=== PATIENT | female | born 1950 | race Caucasian/White ===

== ENCOUNTER → 2023-12-26 08:13 | Outpatient (REF) | payer MEDICARE, OTHER, SELFPAY ==
[2023-12-26 08:44] LABS: Urine Albumin Negative (Neg - Trace); Urine Bilirubin Negative (Negative); Urine Character Clear (Clear); Urine Color Yellow; Urine Glucose Negative (Negative); Urine Ketone 1+ (Negative); Urine Leukocyte Negative (Negative); Urine Nitrite Negative (Negative); Urine Occult Blood Negative (Negative); Urine Specific Gravity 1.015 (<1.030); Urine Urobilinogen Negative (Neg - 1+); Urine pH 6.5 (5.0-9.0)
[2023-12-26 09:28] LABS: % Basophils 0.4 % (0-2); % Eosinophils 0.8 % (0-6); % Immature Granulocytes 0.2 % (0-0.5); % Lymphocytes 21.2 % (20.5-51.1); % Monocytes 8.1 % (1.7-9.3); % Neutrophils 69.3 % (42.2-75.2); Absolute Lymphocytes 1.1 10^3/uL (1.2-3.4); Absolute Monocytes 0.4 10^3/uL (0.1-0.6); Absolute Neutrophils 3.6 10^3/uL (1.4-6.5); Hematocrit 42.3 % (37.0-47.0); Hemoglobin 14.5 g/dL (12.0-16.0); Mean Corp Hgb Conc. 34.3 g/dL (33.0-37.0); Mean Corpuscular Hgb 31.3 pg (27.0-31.0); Mean Corpuscular Volume 91.2 fL (81.0-99.0); Mean Platelet Volume 9.6 fL (7.4-10.4); Nucleated Red Blood Cells % 0 %; Platelet Count 256 10^3/uL (130-400); Red Blood Cell Count 4.64 10^6/uL (4.20-5.40); Red Cell Dist. Width 11.6 % (11.5-14.5); White Blood Cell Count 5.2 10^3/uL (4.8-10.8)
[2023-12-26 09:48] LABS: TSH Reflex To Free T4 0.99 uIU/ml (0.47-4.68)
[2023-12-26 13:08] LABS: ALT (SGPT) 31 U/L (0-35); AST (SGOT) 36 U/L (14-36); Alkaline Phosphatase 70 U/L (38-126); Blood Urea Nitrogen 13 mg/dl (7-17); Calcium 9.8 mg/dl (8.4-10.2); Carbon Dioxide 27 mmol/L (22-30); Chloride 98 mmol/L (98-107); Glucose 80 mg/dl (70-99); HDL Cholesterol 77 mg/dl; LDL Cholesterol, Calculated 120 mg/dl; Potassium 4.4 mmol/L (3.5-5.1); Sodium 133 mmol/L (135-145); Total Bilirubin 1.6 mg/dl (0.2-1.3); Total Cholesterol 221 mg/dl (50-199); Total Protein 7.7 g/dl (6.3-8.2); Triglyceride 124 mg/dl (10-149); Very Low Density Lipoprotein 24 mg/dl (0-30); eGFR > 60.00
== END ==
LOC: REG 08:13
PROVIDERS: ATTENDING PHYSICIAN Internal Medicine
DX: Z86.73 Personal history of transient ischemic attack (TIA), and cerebral infarction without residual deficits (principal); R53.83 Other fatigue; R63.4 Abnormal weight loss
CPT/HCPCS: 36415; 80053; 80061; 81003; 84443; 85025

== ENCOUNTER → 2025-01-06 07:45 | Outpatient (REF) | payer MEDICARE, OTHER, SELFPAY ==
[2025-01-06 08:47] LABS: % Basophils 0.8 % (0-2); % Eosinophils 1.3 % (0-6); % Immature Granulocytes 0.2 % (0-0.5); % Lymphocytes 23.6 % (20.5-51.1); % Monocytes 8.1 % (1.7-9.3); Absolute Eosinophils 0.1 10^3/uL (0-0.7); Absolute Lymphocytes 1.1 10^3/uL (1.2-3.4); Absolute Monocytes 0.4 10^3/uL (0.1-0.6); Absolute Neutrophils 3.1 10^3/uL (1.4-6.5); Hematocrit 39.7 % (37.0-47.0); Hemoglobin 13.7 g/dL (12.0-16.0); Mean Corp Hgb Conc. 34.5 g/dL (33.0-37.0); Mean Corpuscular Hgb 31.2 pg (27.0-31.0); Mean Corpuscular Volume 90.4 fL (81.0-99.0); Mean Platelet Volume 9.8 fL (7.4-10.4); Nucleated Red Blood Cells % 0 %; Platelet Count 233 10^3/uL (130-400); Red Blood Cell Count 4.39 10^6/uL (4.20-5.40); Red Cell Dist. Width 11.9 % (11.5-14.5); White Blood Cell Count 4.7 10^3/uL (4.8-10.8)
[2025-01-06 09:04] LABS: ALT (SGPT) 32 U/L (0-35); AST (SGOT) 32 U/L (14-36); Albumin 4.8 g/dl (3.5-5.0); Alkaline Phosphatase 72 U/L (38-126); Blood Urea Nitrogen 18 mg/dl (7-17); Calcium 9.9 mg/dl (8.4-10.2); Carbon Dioxide 29 mmol/L (22-30); Chloride 102 mmol/L (98-107); Glucose 93 mg/dl (70-99); HDL Cholesterol 66 mg/dl; LDL Cholesterol, Calculated 96 mg/dl; Sodium 140 mmol/L (135-145); Total Bilirubin 1.4 mg/dl (0.2-1.3); Total Cholesterol 186 mg/dl (50-199); Total Protein 7.2 g/dl (6.3-8.2); Triglyceride 120 mg/dl (10-149); Very Low Density Lipoprotein 24 mg/dl (0-30); eGFR > 60.00
[2025-01-06 09:32] LABS: TSH Reflex To Free T4 0.99 uIU/ml (0.47-4.68)
== END ==
LOC: REG 07:45
PROVIDERS: ATTENDING PHYSICIAN Internal Medicine
DX: R21 Rash and other nonspecific skin eruption (principal); I63.9 Cerebral infarction, unspecified; Z85.3 Personal history of malignant neoplasm of breast; R63.4 Abnormal weight loss
CPT/HCPCS: 36415; 80053; 80061; 84443; 85025

== ENCOUNTER → 2025-02-26 14:21 | Outpatient (REF) | payer MEDICARE, OTHER, SELFPAY | LOC: WDC 14:21 | PROVIDERS: ATTENDING PHYSICIAN Internal Medicine | DX: Z12.31 Encounter for screening mammogram for malignant neoplasm of breast (principal) | CPT/HCPCS: 77063; 77067 ==

== ENCOUNTER 2025-06-20 10:03 | Inpatient (IN) | payer MEDICARE, OTHER, SELFPAY ==
[2025-06-20] VITALS (15 sets, daily range): BP systolic 127–162; BP diastolic 61–95; PULSE 65–88; BMI 17.3; BMI 18.1
--- NOTE | 2025-06-20 06:42 | ED.GENMED ---
History of Present Illness
General
Chief Complaint: Fainting/Passed Out
Time Seen by Provider: 06/20/25 06:42
History of Present Illness
History of Present Illness:
FOCUSED PAST MEDICAL HISTORY
- Breast cancer
REVIEW OF OLD RECORDS
- The patient had surgery for breast cancer 2007 and had screening colonoscopy in 2017
Note:
CHIEF COMPLAINT(S)
Flu-like symptoms, weakness, and syncope.
HISTORY OF PRESENT ILLNESS
The patient is a 74-year-old female who reports the onset of symptoms starting on Monday, two days ago. She describes these symptoms as resembling the flu, beginning with fatigue followed by a sudden onset of generalized achiness and weakness.
The patient denies any episodes of fever or respiratory difficulties. She also reports experiencing syncope on three occasions last night, including one incident in the hallway and another on her way to the restroom. The patient does not recall the
episodes of fainting until she found herself on the floor. She denies having a pacemaker. Additional symptoms include the presence of diarrhea, which she describes as 'oozing.' She denies vomiting but has experienced nausea without any actual
emesis. Currently, her primary concern is fear of standing due to a potential recurrence of syncope. She denies any abdominal tenderness upon palpation and does not report respiratory symptoms. The patient did not receive a flu nor COVID vaccination
this year.
PAST MEDICAL AND SURGICAL HISTORY
The patient has a history of breast cancer. She does not currently take any medications.
PHYSICAL EXAM
General: Appears weak and debilitated.
Skin: No acute findings.
Head: Normocephalic.
Neck: Supple.
Eye, Ears, Nose, Mouth, and Throat: Clear.
Cardiovascular: Occasional irregularity noted in cardiac sounds upon auscultation.
Respiratory: Clear lung sounds.
Gastrointestinal: Non-tender abdomen.
Neurological: Alert, oriented, reports feeling weak.
Psychiatric: Afraid of standing due to fear of syncope.
PLAN
- Administer intravenous fluids.
- Conduct blood tests and electrocardiogram (EKG).
- Monitor patients symptoms and provide supportive care.
DIFFERENTIAL DIAGNOSIS
The Differential Diagnosis includes, in no particular order and is not limited to:
1. Viral infection (e.g., influenza)
2. Syncope due to dehydration
3. Cardiac arrhythmia
4. Electrolyte imbalance
5. Orthostatic hypotension
6. Acute gastrointestinal infection
7. Vasovagal syncope
8. Sepsis or systemic infection
9. Neurological disorder
10. Medication-induced syncope (though the patient reports no current use)
11. CARTER
RADIOLOGY
- Chest x-ray obtained and I see no acute abnormality; CT head personally viewed and shows no acute abnormality other than scalp hematoma
EKG
- Sinus 78, PACs, RSR prime pattern, no acute ST abnormality, PACs are new in comparison to 2008
LABS
- White count and hemoglobin are both normal, sodium 129, COVID-positive, flu negative
UPDATE
-SUMMARY OF ENCOUNTER
The patient, a 74-year-old female, was seen in the emergency department due to flu-like symptoms, weakness, and episodes of syncope. She reported fatigue, generalized achiness, and weakness starting two days ago, with three instances of syncope
occurring last night. She was found to be COVID-19 positive, although she has no respiratory symptoms. Initial assessment noted mild hyponatremia with a sodium level of 129. Given her symptoms, IV fluids were administered to address potential
dehydration, contributing to syncope and weakness. An x-ray was also conducted, but specifics are not available in the transcript.
PLAN
- Continue supportive care with intravenous fluids.
- Monitor sodium levels and overall hydration status.
- Educate the patient regarding syncope precautions and management.
- Recommend COVID-19 isolation protocols given positive test results.
INDEPENDENT REVIEW OF LABS AND INTERPRETATION OF TESTS
My independent review of basic metabolic panel indicates mild hyponatremia with a sodium level of 129.
MEDICATION RECONCILIATION
IV fluids were administered to address dehydration.
MEDICAL DECISION MAKING
-Complexity of Data Reviewed: Chronic conditions affecting care [Breast cancer] Viral infection (e.g., influenza), syncope due to dehydration, cardiac arrhythmia, electrolyte imbalance, orthostatic hypotension, acute gastrointestinal infection,
vasovagal syncope, sepsis or systemic infection, neurological disorder.
-Data:
Category 1:
IV fluid administration due to recent diarrhea and potential dehydration.
Mild hyponatremia were addressed through laboratory findings.
Category 2:
None mentioned.
Category 3:
None mentioned.
-Risk:
Consideration of Admission/Observation: Escalation of care including admission/observation was considered given the complexity and risk of the patients presenting complaint and her underlying comorbidities. However, ultimately I feel the patient is
safe for outpatient management with close follow-up. Reasoning: Work-up reassuring, does not reveal any acute life/organ-threatening processes, patients symptoms well controlled upon reevaluation, reexamination is reassuring, vitals are stable,
patient agreeable with discharge, reliable for follow-up.
DIAGNOSIS
- COVID-19 (U07.1)
- Syncope (R55)
- Mild hyponatremia
I reassessed the patient at 8:45 AM, a small abrasion is noted to the posterior scalp. There is no significant hematoma associated with this. Given her advanced age with general unwell feeling will obtain CT imaging of the head as well.
at bedside feels that she is too unwell to return home especially with passing out multiple times. The syncopal events seem to worsen when she gets up. We had her get up and walk around and she did seem somewhat unsteady. Her heart rate and blood
pressure did not significantly changed. She was given a liter of fluid. Sodium slightly low
Past History
Past History
ED Past Medical History: Other (anemia, Breast CA)
ED Past Surgical History: Gynecological (breast ca sx)
Social History
Personal:
Living: with family
Employment: Employed
Phy Exam
Physical Exam
Physical Exam:
See HPI
Course
Orders/Labs/Results
Orders:
Orders
06/20/25 06:43
Electrocardiogram (*1) Urgent
Reason for Study: Chest Pain
EKG- Treatment ONCE
06/20/25 06:51
0.9% Sodium Chloride 1000 ml [Nss] 1,000 ml IV BOLUS
06/20/25 06:55
Basic Metabolic Panel Urgent
Complete Blood Count/With Diff Urgent
06/20/25 07:27
COVID-19 Antigen Urgent
Source: Nasal Swab
Influenza A+B Rapid Molecular Urgent
BIENVENIDO Source: Nasal Swab
Specimen Description:
06/20/25 07:58
CR Chest - 2 Views Urgent
Comment:
Reason For Exam: (+) COVID; recurrent syncope
06/20/25 08:45
CT Head W/o Iv Contrast Urgent
Comment:
Reason For Exam: head injury; recurrent syncope
06/20/25 09:54
Admit/Transfer Patient As Directed
Co-Sign Provider:
Level of Care: Inpatient admission
Assign to:: Telemetry
Physician / Group: Castillo Noel
Diagnosis: COVID 19 viral infection, recurrent syncope, hyponatremia
Reason for Telemetry: Syncope
Date to Stop Telemetry: 06/22/25
Time to Stop Telemetry: 11:00
Reason for Hospitalization: COVID 19 viral infection, recurrent syncope, hyponatremia
Expected length of stay greater than two midnights?: Yes
ELOS- Estimated Length of Stay in days: 2
I certify the patient meets the requirements for IP care: Yes
PRN Pain Medication Management As Directed
May give lesser potent ordered pain med per pt: Yes
preference::
Protocol:: Medication orders for pain may be administered in a
manner that supports deferring to patient preference
when the pt is:
- Requesting an ordered lesser potent pain medication.
Least to most potent pain medications are defined
as: acetaminophen < NSAID < tramadol < opioids
(morphine, oxycodone, hydromorphone).
- Requesting a lesser dose of the same medication IF
ORDERED.
- Requesting a less intrusive route of administration
if both routes are prescribed by the provider (PO <
IV).
06/20/25 09:55
Code Status As Directed
Resuscitation Status: Full Code
06/22/25 11:00
DC Protocol for Telemetry ONCE
Abnormal Lab Results
06/20/25 06/20/25
06:55 07:27
RDW 11.4 L %
(11.5-14.5)
Absolute Lymphs (auto) 0.5 L 10^3/uL
(1.2-3.4)
Neutrophils % 81.4 H %
(42.2-75.2)
Lymphocytes % 8.3 L %
(20.5-51.1)
Monocytes % 9.9 H %
(1.7-9.3)
Sodium 129 L mmol/L
(135-145)
Chloride 96 L mmol/L
(98-107)
SARS-CoV-2 Antigen Positive A
(Negative)
06/20/25 06:55
06/20/25 06:55
Vital Signs
Initial and Last Documented VS:
Initial Vital Signs
Temp Pulse Resp Pulse Ox
37.2 C 80 16 97
06/20/25 06:50 06/20/25 06:50 06/20/25 06:50 06/20/25 06:50
Last Documented Vital Signs
Temp Pulse Resp BP Pulse Ox
37.2 C 73 16 127/65 96
06/20/25 06:50 06/20/25 10:00 06/20/25 06:51 06/20/25 06:54 06/20/25 06:51
*Pulse Oximetry
Patient hypoxic: no
*Critical Care Note
Total Time (30-74mins, 75-104mins- exclusive of procedures): Not Applicable
ED Attending Note
-
Portions of this chart may have been created with voice recognition software.� Occasional wrong word or��sound alike� substitutions may have occurred due to the inherent limitations of voice recognition software.
Discharge Plan
Departure
Patient Disposition: Admit
Date of Disposition: 06/20/25
Time of Disposition: 08:55
Presentation/result/management discussed w/ accepting MD/DO: Hospitalist
Discharge Problem:
Syncope and collapse
Interventions
Interventions:
*Risk Screen - Suicide Last Done: 06/20/25 06:47
*General Assessment Last Done: 06/20/25 06:47
*Neglect/Abuse Screening Last Done: 06/20/25 06:47
*ED- Fall Risk Assessment Last Done: 06/20/25 06:47
*ED COVID-19 Vaccine History Last Done: 06/20/25 06:47
*ED Influenza Vaccine History Last Done: 06/20/25 06:47
[2025-06-20 07:28] LABS: Hematocrit 40.8 % (37.0-47.0); Hemoglobin 14.4 g/dL (12.0-16.0); Mean Corp Hgb Conc. 35.3 g/dL (33.0-37.0); Mean Corpuscular Volume 87.2 fL (81.0-99.0); Nucleated Red Blood Cells % 0 %; Platelet Count 148 10^3/uL (130-400); Red Cell Dist. Width 11.4 % (11.5-14.5)
[2025-06-20] MEDS: NSS 1000 IV ×2 (07:28→16:48)
[2025-06-20 07:31] LABS: Blood Urea Nitrogen 15 mg/dl (7-17); Calcium 8.7 mg/dl (8.4-10.2); Carbon Dioxide 25 mmol/L (22-30); Chloride 96 mmol/L (98-107); Estimated Creatinine Clearance 45 ml/min; Glucose 94 mg/dl (70-99); Sodium 129 mmol/L (135-145); eGFR > 60.00
[2025-06-20 07:48] LABS: COVID-19 Antigen Positive (Negative)
--- NOTE | 2025-06-20 09:57 | HPS.HSE ---
Family Physician
-
Family Physician: Steven Howard
Chief Complaint
-
Syncope, generalized weakness
History of Present Illness
Patient is a 74-year-old female with no significant past medical history came to ER with new onset of generalized weakness and recurrent syncope starting from last Monday. Patient was in her usual state of health when started feeling excessively
weak/fatigued from last Monday. Patient started to having associated loss of appetite episodes of diarrhea. No abdominal pain nausea or vomiting reported. Patient ended up having 3 syncope episode as well when patient tried to get up from
sitting position. No prodromal symptoms with syncope lasting for few seconds only. Patient would report some flashing light before passing out. Ended up having occipital head injury with minimal bleeding no other larger laceration cuts noted.
Patient denies of having any history of cardiac issues/cardiac arrhythmia. Patient was brought into ER for further evaluation and was found to have COVID-19 infection. Of note patient is denying any ongoing shortness of breath/cough for last few
days. Patient was largely afebrile for last few days although noted to feeling bit feverish at home yesterday in ER today.
Medical History
Past Medical History
Past Medical History: Reports None
Past Surgical History: Reports None
Social History
Tobacco: Non-smoker
Alcohol: None
Drug: None
Personal:
Living: With Family
Family History
Family History: Not pertinent
Allergies / Home Medications
Allergies reflects when Allergies were last updated in [employer].
Home Medications with original date entered in [employer]
Allergy/Medication List:
Allergies
Allergy/AdvReac Type Severity Reaction Status Date / Time
erythromycin base Allergy NAUSEA, Verified 07/19/17 15:06
VOMITING,
SWEATS
house dust Allergy Itching Verified 07/19/17 15:06
latex (Latex) Allergy Unknown Verified 07/19/17 15:06
mold extracts (Mold Extracts) Allergy Unknown Verified 07/19/17 15:06
cats Allergy Unknown Uncoded 07/19/17 15:06
Home Medications
aspirin 325 mg tablet 975 mg PO DAILYPRN PRN HEADACHE 06/20/25
calcium carbonate 500 mg PO DAILY 06/20/25
folic acid 400 mcg tablet 0.4 mg PO DAILY 06/20/25
vitamin B complex 1 tab PO DAILY 06/20/25
Review of Systems
-
A 12 point ROS was completed and negative except as noted: Yes
Physical Exam
Vital Signs
Vital Signs
Temp Pulse Resp BP Pulse Ox
98.9 F 78 16 127/65 96
06/20/25 06:50 06/20/25 06:51 06/20/25 06:51 06/20/25 06:54 06/20/25 06:51
Physical Exam
General: Well Developed, Well Nourished and No Apparent Distress
HEENT: NormoCephalic, Moist mucous membranes and Atraumatic
Respiratory: Clear
Cardiac: S1/S2 and Regular Rhythm; No Murmur or Rub
GI: Soft, Non Tender, Non Distended and Normal Bowel Sounds; No Organomegaly
Rectal: Deferred by Provider
Musculoskeletal: No Clubbing, No Cyanosis and No Edema
Skin: No Rash
Neuro: Nonfocal/grossly intact
Laboratory Results
-
06/20/25 06:55
06/20/25 06:55
Laboratory Results
Total Bilirubin Cancelled 06/20/25 06:55
AST Cancelled 06/20/25 06:55
ALT Cancelled 06/20/25 06:55
Alkaline Phosphatase Cancelled 06/20/25 06:55
Impression/Plan
-
1. COVID-19 viral infection
-No dyspnea/hypoxia
-Chest x-ray clear
-Hold on starting steroids/Paxlovid, will start if required
2. Recurrent syncope
-Clinically sounding orthostatic hypotension, vital checks ordered
-EKG reviewed and normal sinus rhythm, monitor on telemetry
-No previous cardiac history
-Not on any blood pressure medication
3. Generalized weakness
-From COVID infection, PT OT ordered
4. Hyponatremia
-Reported decreased oral intake with few episodes of diarrhea from COVID likely
-Considering hypovolemic hyponatremia
-Got 1 L normal saline in ER, maintain on NS
-Recheck sodium in the morning
5. Episodes of diarrhea
-Imodium as needed for symptomatic control
DVTPPX - lovenox
Full code
Total time spent : 78 mins
I personally saw and examined the patient.
I have reviewed all diagnostic interpretations and treatment plans as written.
Time includes patient management by me, time spent at the patients bedside, time to review lab and imaging results, discussing patient care, documentation in the medical record, and time spent with the family or caregiver and discussing care plan
with RN/Consultants.
--- NOTE | 2025-06-20 12:21 | CM ---
Chart reviewed and spoke with pt and Yandel at bedside. Lives in a 2 story home with 12 [address] with railings. Bathroom on the 1st floor. Previously Independent, driving.
no DME
PCP Steven Howard
RX plan yes
Pharmacy [facility] in [place]
no hx of VN nor SNF
CM will follow up with any dcp needs
--- NOTE | 2025-06-20 12:26 | CM ---
chart reviewed and spoke with patient and at ED bedside.
Lives in a 2 story home with 12 [address]; BR on the same level
Independent, ambulating w/o difficulty and driving
no DME
PCP Conrado Howard
RX plan yes [employer]
Pharmacy [facility] in [place]
no hx of VN nor SNF
CM will continue to follow up with dcp needs
[2025-06-20] MEDS: TYLENOL 650 MG PO (12:47)
[2025-06-20] MEDS: LOVENOX 40 MG SC (20:24)
--- NOTE | 2025-06-20 22:22 | PTCARENOTE ---
Patient arrived to unit via stretcher around 21:45. Patient AAOx3. Pleasant and cooperative with care. Patient denies pain or SOB at current time. Unsteady with transfer needing assist x 1 to walk to bed. Bed alarm applied and reasoning explained to
patient. Patient states understanding and agrees to use call macias for all assists. Vitals stable. Patient on room air. Oriented to unit. Call macias within reach.
[2025-06-21 03:37] VITALS: BP 152/75
[2025-06-21] MEDS: NSS 1000 IV (04:22)
[2025-06-21 07:36] VITALS: BP 129/80; BP 130/81; BP 138/83; PULSE 84; PULSE 93; PULSE 94
[2025-06-21 08:07] LABS: Hematocrit 43.2 % (37.0-47.0); Hemoglobin 14.7 g/dL (12.0-16.0); Mean Corp Hgb Conc. 34.0 g/dL (33.0-37.0); Mean Corpuscular Volume 91.9 fL (81.0-99.0); Nucleated Red Blood Cells % 0 %; Platelet Count 160 10^3/uL (130-400); Red Cell Dist. Width 11.8 % (11.5-14.5)
[2025-06-21 08:42] LABS: Blood Urea Nitrogen 10 mg/dl (7-17); Calcium 8.7 mg/dl (8.4-10.2); Carbon Dioxide 31 mmol/L (22-30); Chloride 101 mmol/L (98-107); Estimated Creatinine Clearance 55 ml/min; Glucose 101 mg/dl (70-99); Potassium 4.3 mmol/L (3.5-5.1); Sodium 136 mmol/L (135-145); eGFR > 60.00
[2025-06-21 11:04] VITALS: BP 148/84; BP 152/75; BP 154/74; PULSE 76; O2SAT 96
[2025-06-21 11:13] VITALS: BP 148/89; BP 152/75; BP 154/75; PULSE 76; O2SAT 96
[2025-06-21 11:40] VITALS: BP 143/83
--- NOTE | 2025-06-21 12:23 | CM ---
CM reviewed chart, patient for d.c today.
CM spoke with patient, confirmed transportation home, on way to pick patient up.
CM discussed therapy recommendations of home health- patient declining at this time.
IMM provided 06/20.
CM will continue to follow.
Plan; home no needs
--- NOTE | 2025-06-21 15:58 | W.DCSUMMARY ---
Discharge Summary
Discharge Data
Date of Admission: 06/20/25
Date of Discharge: 06/21/25
-
Pending Results: No
Hospital Course
Discharging Physician : Dr Castillo Noel
Disposition : To home
Primary care physician : Dr Steven Howard
Principal Discharge diagnosis :
COVID-19 viral infection
Hypovolemic hyponatremia
Recurrent syncope
Generalized weakness
Diarrhea
Chronic Discharge diagnosis :
Physical examination:
HEENT: moist mucus membrane
Chest: Clear to auscultation
Heart: N s1/s2, RRR, no murmur
Abd: N BS, soft, nontender, nondistended, no organomegaly
Neuro: No motor or sensory deficits,
Ext: No edema
Hospital Course :
Patient is a 74-year-old female with admission past medical history came to ER with new onset of generalized weakness and multiple syncopal episodes (reported to be 3). In ER patient was checked for COVID and was found to be positive. Blood work
showing patient also having hyponatremia. Patient reported to having some diarrhea ongoing for last few days. Chest x-ray was done which showed normal lung parenchyma. Patient was not requiring any oxygen. Patient was admitted for further
monitoring for syncope and treatment of hyponatremia. Patient hyponatremia was felt to be hypovolemic in nature in light of decreased oral intake and ongoing diarrhea. Patient was started on IV hydration. Patient sodium has normalized within 24
hours. Patient was monitored on telemetry and did not have any acute arrhythmias. Orthostatic vitals were checked and were within normal limit. No further syncope episodes were occurring. No new changes develop from COVID perspective. Patient
was discharged home at this point with continuation of home medication. Patient to follow-up with primary care physician in office in 1 week.
Important imaging findings :
None
Procedure findings :
None
Discharge Plan
-
Patient Disposition: Home (Routine Discharge)
Discharge Diagnosis/Procedures: COVID 19 viral infection, Hyponatremia, Volume depletion, weakness
Condition: Fair
Diet: Regular
Activity: As tolerated
Driving Restrictions: No driving for 24 hours
Bathing Restrictions: OK to Shower
Referrals:
Steven Howard MD [Family Provider, Internal Medicine] - in one week
Prescriptions:
Continued
aspirin 325 mg Tablet
975 mg PO DAILYPRN PRN (Reason: HEADACHE)
folic acid 400 mcg Tablet
0.4 mg PO DAILY
calcium carbonate 500 mg calcium (1,250 mg) Tablet
500 mg PO DAILY
vitamin B complex Tablet
1 tab PO DAILY
Discharge Orders:
Discharge Patient (As Directed); Ordered 06/21/25
Ordered By: Castillo Noel
Discharge Date and Time
Discharge Date/Time: 06/21/25 14:42
Print Language: UKRAINIAN
== END 2025-06-21 14:42 | disposition home or self-care (01) | DRG 178 ==
LOC: 4 WEST ACU 10:03
PROVIDERS: ADMITTING PHYSICIAN Hospitalist; EMERGENCY PHYSICIAN Emergency Medicine; FAMILY PHYSICIAN Internal Medicine
DX: U07.1 COVID-19 (principal); E87.1 Hypo-osmolality and hyponatremia; E86.1 Hypovolemia; C50.919 Malignant neoplasm of unspecified site of unspecified female breast
CPT/HCPCS: 70450; 71046; 80048; 85025; 87502; 87811; 93005; 96360; 96361; 97116; 97163; 97167; 99285